=== PATIENT | female | born 1985 | race Caucasian/White ===

== ENCOUNTER → 2018-02-16 10:33 | Outpatient (CLI) | payer OTHER, SELFPAY ==
--- NOTE | 2018-02-16 | DI.US.S_ITS ---
ULTRASOUND OF RIGHT BREAST: 02/16/2018 CLINICAL: Palpable right breast lump. Comparison is made to exams dated: 02/16/2018 mammogram - [facility], 02/13/2017 ultrasound, and 05/30/2016 ultrasound - [facility]. Ultrasound of the right breast was performed on the area of interest. Medrano scale images of the real-time examination were reviewed. IMPRESSION: NEGATIVE There is no sonographic evidence of malignancy. There is no mammographic or sonographic abnormality seen in the right breast to correspond with the palpable abnormality, however, clinical followup is recommended. Return to annual mammogram screening schedule is recommended. This exam was interpreted at Station ID: [id number]. Electronically Signed By: Ana rasheed/jason:02/16/2018 14:11:40 copy to: TAMARA THAKUR letter sent: Clinical Evaluation Ultrasound BI-RADS: 1 Negative
--- NOTE | 2018-02-16 | DI.MG.S_ITS ---
BILATERAL DIGITAL DIAGNOSTIC MAMMOGRAM 3D/2D: 02/16/2018 CLINICAL: Right breast mass. Comparison is made to exams dated: 05/30/2016 ultrasound and 02/13/2017 ultrasound - [facility]. The tissue of both breasts is extremely dense, which lowers the sensitivity of mammography. No significant masses, calcifications, or other findings are seen in either breast. IMPRESSION: INCOMPLETE: NEEDS ADDITIONAL IMAGING EVALUATION There is no mammographic abnormality seen in the right breast to correspond with the palpable abnormality, however, ultrasound is recommended. This exam was interpreted at Station ID: [id number]. NOTE: For mammograms, a report in lay terms will be sent to the patient. Approximately 15% of breast malignancies will not be visualized mammographically. In the management of a palpable breast mass, a negative mammogram must not discourage biopsy of a clinically suspicious lesion. Electronically Signed By: Ana rasheed/jason:02/16/2018 11:30:24 copy to: TAMARA THAKUR letter sent: Additional Imaging Needed ACR BI-RADS Category 0: Incomplete 3340F
== END ==
PROVIDERS: PCP Naturopath; Visit Provider Nurse Practitioner Obstetrics & Gynecology
DX: R92.1 Mammographic calcification found on diagnostic imaging of breast (principal); N63.10 Unspecified lump in the right breast, unspecified quadrant
CPT/HCPCS: 76642; 77066; G0279

== ENCOUNTER → 2019-07-15 12:35 | Outpatient (CLI) | payer OTHER, SELFPAY ==
--- NOTE | 2019-07-15 | DI.US.S_ITS ---
ULTRASOUND OF LEFT BREAST: 07/15/2019 CLINICAL: Palpable left breast lump. Comparison is made to exams dated: 07/15/2019 mammogram, 02/16/2018 mammogram - [facility], 02/13/2017 ultrasound, and 05/30/2016 ultrasound - [facility]. Color flow and real-time ultrasound of the left breast were performed on the areas of interest. Medrano scale images of the real-time examination were reviewed. There is a 1.1 cm x 5 cm x 1.1 cm oval mass in the left breast at 1 o'clock middle depth. This oval mass is hypoechoic. This correlates as palpated. There also is a 1.6 cm x 1.8 cm x 0.6 cm oval mass in the left breast at 3 o'clock middle depth. This oval mass is hypoechoic. This correlates as palpated. Additionally, there is a 0.7 cm x 0.4 cm x 0.9 cm irregular mass in the left breast at 4 o'clock anterior depth. This irregular mass is hypoechoic. The left axilla was interogated and normal appearing lymph nodes are visualized. IMPRESSION: INCOMPLETE: NEEDS ADDITIONAL IMAGING EVALUATION The 1.1 cm x 5 cm x 1.1 cm oval mass in the left breast at 1 o'clock middle depth likely represents a fibroadenoma and is indeterminate. The 1.6 cm x 1.8 cm x 0.6 cm oval mass in the left breast at 3 o'clock middle depth likely represents a fibroadenoma and is indeterminate. The 0.7 cm x 0.4 cm x 0.9 cm irregular mass in the left breast at 4 o'clock anterior depth likely represents a fibroadenoma and is indeterminate. No left axillary adenopathy. Given the multiple palpable breast masses that have the sonographic appearance of fibroadenomas, an MRI is recommended to further characterize findings. This exam was interpreted at Station ID: [id number]. Electronically Signed By: Ana rasheed/:07/17/2019 09:23:10 Entry: debra - 07/17/2019 09:23:10 copy to: TAMARA THAKUR letter sent: Need MRI Ultrasound BI-RADS: 0 Indeterminate
--- NOTE | 2019-07-15 | DI.MG.S_ITS ---
BILATERAL DIGITAL DIAGNOSTIC MAMMOGRAM 3D/2D: 07/15/2019 CLINICAL: Bilateral breast lumps. Comparison is made to exams dated: 02/16/2018 mammogram - [facility], 02/13/2017 ultrasound, 05/30/2016 ultrasound [facility], and 02/16/2018 [facility] [place] - [facility]. The tissue of both breasts is extremely dense, which lowers the sensitivity of mammography. No significant masses, calcifications, or other findings are seen in either breast. IMPRESSION: INCOMPLETE: NEEDS ADDITIONAL IMAGING EVALUATION There are no mammographic abnormalities seen in either breast to correspond with the palpable nodularities, however, targeted ultrasound of the bilateral breasts is recommended and will be performed immediately following this exam. This exam was interpreted at Station ID: [id number]. NOTE: For mammograms, a report in lay terms will be sent to the patient. Approximately 15% of breast malignancies will not be visualized mammographically. In the management of a palpable breast mass, a negative mammogram must not discourage biopsy of a clinically suspicious lesion. Electronically Signed By: Ana Purvis M.D. lk/:07/15/2019 13:24:51 copy to: TAMARA THAKUR [facility] BI-RADS Category 0: Incomplete 3340F
--- NOTE | 2019-07-15 | DI.US.S_ITS ---
ULTRASOUND OF RIGHT BREAST: 07/15/2019 CLINICAL: Palpable right breast lump. Comparison is made to exams dated: 07/15/2019 mammogram, 02/16/2018 ultrasound, 02/16/2018 mammogram - [facility], 02/13/2017 ultrasound, and 05/30/2016 ultrasound - [facility]. Color flow and real-time ultrasound of the right breast were performed on the areas of interest. Medrano scale images of the real-time examination were reviewed. There is a 1.6 cm x 0.6 cm x 1.6 cm oval mass in the right breast at 9 o'clock middle depth. This oval mass is hypoechoic. This correlates as palpated. The right axilla was interogated and normal appearing lymph nodes are visualized. IMPRESSION: INCOMPLETE: NEEDS ADDITIONAL IMAGING EVALUATION There is no mammographic or sonographic abnormality seen in the right breast to correspond with the palpable abnormality at 12 o'clock, however, clinical followup is recommended. The 1.6 cm x 0.6 cm x 1.6 cm oval mass in the right breast likely represents a fibroadenoma and is indeterminate. No right axillary adenopathy. Given the presence of bilateral palpable masses that have the sonographic appearance of fibroadenomas and the extremely dense breast tissue, breast MRI is recommeded to further characterize the bilateral palpable masses. This exam was interpreted at Station ID: [id number]. Electronically Signed By: Ana rasheed/:07/17/2019 09:23:35 Entry: debra - 07/17/2019 09:23:35 copy to: TAMARA THAKUR letter sent: Need MRI Ultrasound BI-RADS: 0 Indeterminate
== END ==
PROVIDERS: PCP Naturopath; Visit Provider Naturopath
DX: R92.8 Other abnormal and inconclusive findings on diagnostic imaging of breast (principal); N63.15 Unspecified lump in the right breast, overlapping quadrants; N63.21 Unspecified lump in the left breast, upper outer quadrant; N63.25 Unspecified lump in the left breast, overlapping quadrants; N63.23 Unspecified lump in the left breast, lower outer quadrant
CPT/HCPCS: 76642; 77066; G0279

== ENCOUNTER → 2019-07-16 07:31 | Outpatient (CLI) | payer OTHER, SELFPAY ==
[2019-07-16 08:54] LABS: Add Manual Diff / Slide Review NO; Basophils Absolute Auto 0 /uL (0-100); Basophils Percent Auto 0.4 % (0-2); Eosinophils Absolute Auto 100 /uL (0-450); Eosinophils Percent Auto 2.7 % (2-4); Hematocrit 38.3 % (36-46); Hemoglobin 13.2 g/dL (12.0-16.0); Lymphocytes Absolute Auto 1500 /uL (1100-4500); Lymphocytes Percent Auto 30.5 % (25-40); Mean Corpuscular HGB Conc 34.5 % (30-36); Mean Corpuscular Hemoglobin 29.6 PG (26-34); Mean Corpuscular Volume 85.9 fL (80-100); Monocytes Absolute Auto 400 /uL (0-900); Monocytes Percent Auto 7.4 % (3-14); Neutrophils Absolute Auto 2800 /uL (1500-7000); Platelet Count 163 X10^3/uL (150-400); Red Blood Cell Count 4.46 X10^6/uL (4.0-5.2); Red Cell Distribution Width 13.3 % (11.6-14.8); White Blood Cell Count 4.8 X10^3/uL (4.5-11.0)
[2019-07-16 09:05] LABS: Alanine Aminotransferase 16 IU/L (<35); Albumin 4.6 g/dL (3.5-5.0); Albumin Globulin Ratio 1.8 (1.0-2.8); Alkaline Phosphatase 49 U/L (38-126); Aspartate Aminotransferase 26 IU/L (14-36); BUN Creatinine Ratio 31.4 (6-22); Bilirubin Total 0.6 mg/dL (0.2-1.3); Blood Urea Nitrogen 22 mg/dL (7-17); Calcium 9.2 mg/dL (8.4-10.2); Carbon Dioxide 29 mmol/L (22-32); Chloride 102 mmol/L (98-107); Cholesterol 122 mg/dL (140-199); Estimated Glomerular Filt Rate > 60.0 mL/min (>60); Globulin 2.5 g/dL (1.7-4.1); Glucose 82 mg/dL (70-100); HDL Cholesterol 61 mg/dL (40-60); HEMOLYSIS < 15 (0-50); LDL Cholesterol Calculated 43 mg/dL (<100); Potassium 3.7 mmol/L (3.4-5.1); Sodium 140 mmol/L (137-145); Total Protein 7.1 g/dL (6.3-8.2); Triglycerides 89 mg/dL (35-150)
[2019-07-16 09:38] LABS: Ferritin 8.1 ng/mL (6.27-137)
[2019-07-16 10:05] LABS: Free T3, Triiodothyronine Free 4.69 pg/mL (2.77-5.27); Free T4, Direct Thyroxine 0.94 ng/dL (0.78-2.19)
[2019-07-16 10:19] LABS: Thyroid Stimulating Hormone 2.08 uIU/mL (0.47-4.68)
[2019-07-18 17:01] LABS: Thyroid Peroxidase Antibodies < 1 IU/mL (< 9)
== END ==
PROVIDERS: PCP Naturopath; Visit Provider Naturopath
DX: Z00.00 Encounter for general adult medical examination without abnormal findings (principal); R53.83 Other fatigue
CPT/HCPCS: 36415; 80053; 80061; 82728; 84439; 84443; 84481; 85025; 86376

== ENCOUNTER 2019-07-24 14:28 | Emergency (ER) | payer OTHER, SELFPAY ==
[2019-07-24 14:33] VITALS: BP 94/69; PULSE 66; RESP 16; TEMP 37; O2SAT 98; BMI 16.1
--- NOTE | 2019-07-24 14:47 | PC.NURSE ---
pt states that she feels pressure at about the xiphoid process level, started during a meal, feels like something is stuck there, worsens when she eats something, no drooling, no vomiting, no difficulty breathing, lungs clear, no acute distress
--- NOTE | 2019-07-24 15:05 | ED.ABDPAIN ---
HPI - Abdominal Pain <JANETTE Bhardwaj - Last Filed: 07/24/19 17:35> General Chief Complaint: Abdominal Pain Stated Complaint: pain in the esophagus Time Seen by Provider: 07/24/19 14:44 Source: patient Mode of arrival: Ambulatory Limitations: no limitations History of Present Illness HPI narrative: 33-year-old female presents to the emergency department complaining of epigastric pain that started last night. She states it is a 4/10 burning and dull aching pain that only occurs when she chews and swallows food. She states a gradually came on as she noticed it while eating dinner late. Patient took Tums but still complains of irritation when swallowing. She has no pain at rest or during exercise. Patient denies any difficulty swelling. She is able to eat all food and liquids without difficulty, denies traveling. Patient denies sore throat, fevers, shortness of breath, dizziness, abdominal pain, diarrhea, vomiting, or other concerns. She denies any melena or history of gastric ulcers. She denies any abdominal surgeries. Related Data Previous Rx's Medication Instructions Recorded omeprazole 20 mg PO DAILY 14 Days #14 cap 07/24/19 Allergies Allergy/AdvReac Type Severity Reaction Status Date / Time No Known Drug Allergies Allergy Verified 07/24/19 14:33 Review of Systems <JANETTE Bhardwaj - Last Filed: 07/24/19 17:35> Review of Systems Narrative: REVIEW OF SYSTEMS: GENERAL: Denies fever, chills, malaise, or wt. loss. HENT: No head trauma, sore throat, or dysphagia. EYES: No loss of vision, double vision, eye pain, or irritation. CARDIOVASCULAR: No palpitations, or orthopnea. RESPIRATORY: No shortness of breath or cough. GASTROINTESTINAL: Complains of occasional epigastric pain with swelling, see HPI. GENITOURINARY: No flank pain, urinary incontinence, hesitancy, frequency, or dysuria. MUSCULOSKELETAL: No pain, weakness, or trauma. INTEGUMENTARY: No rash, lesions, or pruritus. NEURO: No numbness, tingling, memory loss, confusion, or headaches. PSYCH: No behavior or mood changes. Patient History <JANETTE Bhardwaj - Last Filed: 07/24/19 17:35> Medical History No significant medical problems (Acute) Social History Smoking Status: Never smoker Smoking Status: Never smoker alcohol intake frequency: holidays/special occasions only Substance Use Type: does not use Exam <JANETTE Bhardwaj - Last Filed: 07/24/19 17:35> Initial Vital Signs Initial Vital Signs: Vital Signs Temperature 98.6 F 07/24/19 14:33 Pulse Rate 66 07/24/19 14:33 Respiratory Rate 16 07/24/19 14:33 Blood Pressure 94/69 07/24/19 14:33 Pulse Oximetry 98 07/24/19 14:33 PHYSICAL EXAMINATION: GENERAL: Well groomed, alert, and cooperative. Skinny appearing. Answers questions promptly and appropriately. Vital signs noted. HENT: Normocephalic, atraumatic. Hearing intact. Oral mucosa is pink and moist. EYES: Conjunctiva pink, sclera white, no periorbital swelling. CARDIOVASCULAR: S1 and S2 sounds normal. Regular rate and rhythm, no murmurs, clicks, or bruits. No pedal edema. RESPIRATORY: Normal respiratory rate, trachea midline, airway patent. No stridor, nasal flaring or accessory muscle use. Lungs are clear in all blanco without wheeze, rhonchi, or crackles. GASTROINTESTINAL: Bowel sounds normoactive. Abdomen is soft and non-tender. No organomegaly, no palpable masses. MUSCULOSKELETAL: Normal gait and coordination. Equal tone and mass bilaterally. EXTREMITIES: CMS intact, no pedal edema. SKIN: Warm, dry, soft, appropriate color for ethnicity. No lesions, rashes, or wounds to visualized areas. NEURO: Alert and Oriented X 3. Good coordination. No ataxia, or sensory deficits, or cognitive issues. PSYCH: Appropriate affect and mood. <Lindy Ralph MD - Last Filed: 07/25/19 06:54> Initial Vital Signs Initial Vital Signs: Vital Signs Temperature 98.6 F 07/24/19 14:33 Pulse Rate 66 07/24/19 14:33 Respiratory Rate 16 07/24/19 14:33 Blood Pressure 94/69 07/24/19 14:33 Pulse Oximetry 98 07/24/19 14:33 Course <JANETTE Bhardwaj - Last Filed: 07/24/19 17:35> Course Course Narrative: Patient was given a GI cocktail to see if this will help relieve symptoms. Patient reported decreased pain with swelling liquids after administration of GI cocktail. However, she still feels esophageal irritation when eating crackers. Orders Ordered: Discontinued Medications Al Hydrox/Mg Hydrox/Simethicone 20 ml/ Lidocaine HCl 15 ml 0 ml PO NOW ONE Stop: 07/24/19 15:06 Last Admin: 07/24/19 15:10 Dose: 20 ml Documented by: [facility] Consultations Consultation #1: Patient staffed with Dr. Ralph. Vital Signs Vital signs: Vital Signs - 8 hr 07/24/19 14:33 Temperature 98.6 F Pulse Rate 66 Respiratory Rate 16 Blood Pressure 94/69 Pulse Oximetry 98 <Lindy Ralph MD - Last Filed: 07/25/19 06:54> Orders Ordered: Discontinued Medications Al Hydrox/Mg Hydrox/Simethicone 20 ml/ Lidocaine HCl 15 ml 0 ml PO NOW ONE Stop: 07/24/19 15:06 Last Admin: 07/24/19 15:10 Dose: 20 ml Documented by: [facility] Vital Signs Vital signs: Vital Signs - 8 hr 07/24/19 14:33 Temperature 98.6 F Pulse Rate 66 Respiratory Rate 16 Blood Pressure 94/[address] [facility] - Abdominal Pain <JANETTE Bhardwaj - Last Filed: 07/24/19 17:35> Medical Records Attestation: I reviewed the patient's medical records. Lab Data Attestation: I reviewed the patient's lab results. ECG Data Interpretation: EKG read by Dr. Ralph. normal sinus rhythm, rate 61, WI interval 147, QTC 403. no ST elevation or ST depression. No T-wave abnormal T and no ectopy. [facility] Narrative Medical decision making narrative: This is a healthy appearing 33-year-old female presenting for what appears to be esophageal irritation that occurs only when swallowing food and water. This was slightly improved with a GI cocktail but she still felt some irritation with swallowing foods like crackers. I suspect most likely esophagititis from food or acid reflux or gastritis. Less likely foreign body stuck in throat as pain only occurs while swallowing and she does not have a sensation of food continually being stuck, patient able to maintain secretions and swallow all types of foods and liquids, additionally sensation slightly improved with GI cocktail. Less likely cardiac etiology as pain only occurs when patient is swallowing food, low risk factors, EKG within normal limits, and lack of other symptoms such as syncope or shortness of breath. Less likely hemorrhagic ulcer due to lack of reports of vomiting or black tarry/blood in stools. less likely acute abdominal etiology such as small-bowel obstruction, appendicitis, or gastroenteritis due to lack of other symptoms such as fever and lack of abdominal pain. patient remained hemodynamically stable throughout the emergency department stay and only complained of pain when she was chewing her crackers. Patient was given omeprazole to help with inflammatory process and instructed to follow up with her primary care provider in 1-2 weeks for further evaluation, if irritation encouraged I suggest and the scope may be beneficial. Patient agreed with plan of care verbalized understanding. Discharge Plan Departure Patient Disposition: Home Clinical Impression: Esophagitis Discharge Date/Time: 07/24/19 16:11 Instructions: DI for Esophagitis Activity Restrictions/Additional Instructions: Thank you for entrusting me with your care today. As discussed, your symptoms are most likely caused by irritation of your esophagus. This most likely caused by irritation from food. A given you prescription for omeprazole, take this for a week and she is foods that are softer to chew such as applesauce, avocados, and bread versus toast. If your symptoms persist after week continue with omeprazole for 2 weeks. Follow up with your primary care provider in 1-2 weeks for further evaluation. Return emergency department for new or worsening symptoms such as vomiting blood, severe abdominal pain, high fevers, blood in her stool, or other concerns. Prescriptions: New omeprazole 20 mg capsule,delayed release(DR/EC) 20 mg PO DAILY 14 Days Qty: 14 RF: 0 Referrals: Shannon Garza ND [Primary Care Provider] -
[2019-07-24] MEDS: MAG HYDROX/ALUMINUM/SIMETH SUS 20 ML, LIDOCAINE VISCOUS 2% 15 ML PO (15:10)
== END 2019-07-24 16:11 | disposition home or self-care (01) ==
PROVIDERS: Emergency Provider Nurse Practitioner; PCP Naturopath
DX: K20.9 Esophagitis, unspecified (principal); R10.13 Epigastric pain
CPT/HCPCS: 93005; 99283

== ENCOUNTER → 2019-08-07 11:25 | Outpatient (CLI) | payer OTHER, SELFPAY ==
--- NOTE | 2019-08-07 | DI.MRI.S_ITS ---
BREAST MRI OF BOTH BREASTS: 08/07/2019 CLINICAL: Inconclusive mammogram. TECHNIQUE: The patient was placed prone in a dedicated breast imaging coil. Precontrast axial STIR and 3D FLASH without fat saturation sequences were obtained. Both before and after bolus injection of contrast, sequential 1-minute axial 3D FLASH with fat saturation sequences for 3 time points, with subtraction images and maximum intensity projections (MIP's) generated. Delayed sagittal FLASH images with fat saturation were also obtained. Computer-aided detection, including computer algorithm analysis of MRI image data for lesion detection and characterization, pharmacokinetic analysis, with further physician review for interpretation, was not available. COMPARISON: Comparison is made to exams dated: 07/15/2019 mammogram, 02/16/2018 mammogram, 07/15/2019 ultrasound, and 07/15/2019 [facility]. FINDINGS: Image quality: Excellent. There is minor right breast background parenchymal and moderate left breast background parenchymal enhancement. Right breast: A smoothly marginated, heterogeneous mass is a posterior depth along the pectoralis muscle at the 1:00 position 6 cm from the nipple measuring 2.4 x 1.9 x 1.0 cm. Internal signal is heterogeneous, mild T2 hyperintensity with a central hypointense focus, and with a ringlike irregular portion demonstrating arterial enhancement. Overall the mass demonstrates mild progressive, benign enhancement. This likely corresponds to the 12 clock palpable region. At the 8:00 position 2 cm from the nipple, there is a second heterogeneous, smoothly marginated, lobulated mass measuring 1.3 x 0.9 x 1.2 cm the which also demonstrates lobulated T2 hyperintensity, less arterial enhancement, and progressive benign enhancement. This likely corresponds to the palpable 9:00 finding. Left breast: There is a T2 hyperintense well-circumscribed ovoid lesion in the 1:00 position demonstrating arterial enhancement with persistent delayed enhancement measuring 1.0 x 0.6 x 1.0 cm by centimeters from the nipple corresponding to the ultrasound finding. At the 3 to 4:00 position a straight back from the nipple at a posterior depth, and 1.1 cm irregular, lobulated masslike lesion demonstrates. Elsewhere in the lower inner quadrant there are moderate nodular, clumped areas of background parenchymal enhancement. No other discrete masses are identified. Miscellaneous: No suspicious internal mammary or axillary lymph nodes are identified. The visible portions of the liver, heart, lungs, and chest wall are normal. IMPRESSION: INCOMPLETE: NEEDS ADDITIONAL IMAGING EVALUATION IMPRESSION: 1. There are 2 right breast masses corresponding to the indicated areas of palpable abnormality, both with mildly T2 hyperintense signal and progressive arterial enhancement. These are likely fibroadenomas. A second look ultrasound is recommended for the 1:00 abnormality (likely corresponding to the 12:00 palpable region). 2. There is a discrete 1.0 cm left breast mass at 1:00 position with MR features consistent with fibroadenoma, and consistent with ultrasound findings. 3. Somewhat amorphous mass in the left breast 3 to 4:00 position measuring 1.1 cm without suspicious enhancement. This likely corresponds to the 3:00 ultrasound finding. BIRADS -0, further imaging is needed. Second look ultrasound of the right breast is recommended. COMMENT: The imaging literature indicates that a negative contrast breast MRI examination has a high sensitivity and a moderate specificity for detecting and excluding invasive carcinomas to a detection threshold of 3-5 mm; nonetheless, appropriate clinical and mammographic follow-up are recommended. MRI is not sensitive for detecting DCIS (ductal carcinoma in situ) and may not detect large invasive neoplasms that show only minimal enhancement such as mucinous carcinoma. If there are suspicious calcifications or clinically worrisome palpable masses, then biopsy should still be considered. Invasive neoplasms can be hidden by co-existent and benign enhancement caused by mastitis, hormone therapy effects, radiation therapy, , and recent biopsy or surgery. False positive examinations can occur in a number of circumstances, including breasts that have recently been subject to invasive procedures and those that contain atypical ductal hyperplasia, hormonally stimulated glandular tissue, fat necrosis, or radial scars. This exam was interpreted at Station ID: [id number]. Electronically Signed By: Jessica monroy/:08/09/2019 09:53:17 copy to: TAMARA THAKUR letter sent: Additional Imaging Needed ACR BI-RADS Category 0: Incomplete 3340F
== END ==
PROVIDERS: PCP Naturopath; Visit Provider Naturopath
DX: R92.8 Other abnormal and inconclusive findings on diagnostic imaging of breast (principal); N63.12 Unspecified lump in the right breast, upper inner quadrant; N63.13 Unspecified lump in the right breast, lower outer quadrant; N63.23 Unspecified lump in the left breast, lower outer quadrant
CPT/HCPCS: 77049; A9579

== ENCOUNTER → 2019-08-28 09:38 | Outpatient (CLI) | payer OTHER, SELFPAY ==
--- NOTE | 2019-08-28 | DI.US.S_ITS ---
[place] ULTRASOUND OF RIGHT BREAST: 08/28/2019 CLINICAL: Palpable right breast lump. Additional evaluation requested from prior study. Comparison is made to exams dated: 08/07/2019 breast MRI, 07/15/2019 ultrasound, 07/15/2019 mammogram, 02/16/2018 ultrasound, 02/16/2018 mammogram - [facility], and 02/13/2017 ultrasound - [facility]. Color flow ultrasound of the right breast was performed. Medrano scale images of the real-time examination were reviewed. There is a 1.5 cm x 0.6 cm x 1.6 cm oval mass in the right breast at 9 o'clock middle depth 3 cm from the nipple. This oval mass is hypoechoic. This abnormality is not significantly changed and correlates as palpated and with recent breast MRI findings. There also is a 2.8 cm x 2.4 cm x 0.4 cm wider than tall oval mass in the right breast at 1 o'clock posterior depth 6 cm from the nipple. This oval mass is hypoechoic and is similar to MRI finding described at the 1 o'clock position, close to the pectoralis muscle. Color flow imaging demonstrates that there is no vascularity present. Additional area of a likely prominent fibroglandular tissue is noted at the 12:00 position, 4cm from the nipple which correlated previously with one of the palpable areas of patient concern. There is no vascularity. It appears less prominent than before. IMPRESSION: PROBABLY BENIGN The 1.5 cm x 0.6 cm x 1.6 cm oval mass in the right breast at 9 o'clock middle depth likely represents a fibroadenoma and is probably benign. This correlates with MRI finding described on study dated 08/07/2019. The 2.8 cm x 2.4 cm x 0.4 cm wider than tall oval mass in the right breast at 1 o'clock posterior depth is probably benign. This likely represents a fibroadenoma and also likely correlates with MRI findings. Previously palpable area of concern at the 12:00 axis, 4cm from the nipple likely represents a ridge of prominent breast tissue. It appears less prominent and smaller in size on today's evaluation. There is no mammographic correlate for this finding and no enhancing abnormalities on recent MRI. A follow-up breast MRI in 6 months is recommended to demonstrate stability. The patient was also instructed to return sooner if development of any clinically suspicious findings in the interim, especially any changes related to the palpable areas of concern in either breast. This exam was interpreted at Station ID: [id number]. Electronically Signed By: Stone Casey M.D. aty/:08/30/2019 07:10:17 copy to: TAMARA THAKUR letter sent: Followup Recommended Ultrasound BI-RADS: 3 Probably benign
== END ==
PROVIDERS: PCP Naturopath; Referring Provider Naturopath; Visit Provider Naturopath
DX: R92.8 Other abnormal and inconclusive findings on diagnostic imaging of breast (principal); N63.15 Unspecified lump in the right breast, overlapping quadrants
CPT/HCPCS: 76642

== ENCOUNTER → 2020-09-29 08:57 | Outpatient (CLI) | payer OTHER, SELFPAY ==
[2020-09-29 09:33] LABS: Add Manual Diff / Slide Review NO; Basophils Absolute Auto 0 /uL (0-100); Basophils Percent Auto 0.5 % (0-2); Eosinophils Absolute Auto 200 /uL (0-450); Hematocrit 38.4 % (36-46); Hemoglobin 13.2 g/dL (12.0-16.0); Lymphocytes Absolute Auto 1300 /uL (1100-4500); Lymphocytes Percent Auto 33.7 % (25-40); Mean Corpuscular HGB Conc 34.5 % (30-36); Mean Corpuscular Hemoglobin 29.5 PG (26-34); Mean Corpuscular Volume 85.6 fL (80-100); Monocytes Absolute Auto 300 /uL (0-900); Monocytes Percent Auto 7.4 % (3-14); Neutrophils Absolute Auto 2200 /uL (1500-7000); Neutrophils Percent Auto 54.4 % (50-75); Platelet Count 149 X10^3/uL (150-400); Red Blood Cell Count 4.48 X10^6/uL (4.0-5.2); Red Cell Distribution Width 13.4 % (11.6-14.8)
[2020-09-29 10:18] LABS: Alanine Aminotransferase 19 IU/L (<35); Albumin 4.4 g/dL (3.5-5.0); Albumin Globulin Ratio 1.7 (1.0-2.8); Alkaline Phosphatase 52 U/L (38-126); Aspartate Aminotransferase 27 IU/L (14-36); Bilirubin Total 0.6 mg/dL (0.2-1.3); Blood Urea Nitrogen 17 mg/dL (7-17); Calcium 9.5 mg/dL (8.4-10.2); Carbon Dioxide 28 mmol/L (22-32); Chloride 100 mmol/L (98-107); Cholesterol 115 mg/dL (140-199); Estimated Glomerular Filt Rate > 60.0 mL/min (>60); Globulin 2.6 g/dL (1.7-4.1); Glucose 86 mg/dL (70-100); HDL Cholesterol 69 mg/dL (40-60); HEMOLYSIS < 15 (0-50); LDL Cholesterol Calculated 38 mg/dL (<100); Sodium 135 mmol/L (137-145); Triglycerides 42 mg/dL (35-150)
== END ==
PROVIDERS: PCP Naturopath; Referring Provider Naturopath; Visit Provider Naturopath
DX: Z00.00 Encounter for general adult medical examination without abnormal findings (principal)
CPT/HCPCS: 36415; 80053; 80061; 85025

== ENCOUNTER → 2021-02-16 10:21 | Outpatient (CLI) | payer OTHER, SELFPAY ==
--- NOTE | 2021-02-16 | DI.RAD.S_ITS ---
PROCEDURE: XR LUMBAR SPINE 2-3V INDICATIONS: Low back pain TECHNIQUE: 2 views of the lumbar spine were acquired. COMPARISON: None. FINDINGS: Bones: 5 [id number] vertebrae are present. There is normal bony alignment. No acute vertebral body compression fractures. No suspicious bony lesions. Degenerative endplate changes of the lumbar spine noted at L1-2 and L2-3. There also degenerative endplate changes at L5-S1. Minimal lower lumbar facet arthropathy. Soft tissues: Overlying bowel gas pattern is normal. No suspicious soft tissue calcifications. IUD projects in the lower pelvis. IMPRESSION: Lumbar spine without acute radiographic abnormalities. Multilevel lumbar spondylosis of the upper lumbar spine and lumbosacral junction. Dictated by: Stone Casey M.D. on 02/16/2021 at 11:39 Approved by: Stone Casey M.D. on 02/16/2021 at 11:40
--- NOTE | 2021-02-16 | DI.RAD.S_ITS ---
PROCEDURE: XR CERVICAL SPINE 2V OR 3V INDICATIONS: Low back pain TECHNIQUE: 3 view(s) of the cervical spine were acquired. COMPARISON: None. FINDINGS: Bones: No fractures or dislocations to the T2 level. The lateral masses of C1 appear intact on the odontoid view. No suspicious bony lesions. Soft tissues: No prevertebral soft tissue swelling. IMPRESSION: Normal cervical spine radiographs Approved by: René Morin M.D. on 02/16/2021 at 12:28
--- NOTE | 2021-02-16 | DI.RAD.S_ITS ---
PROCEDURE: XR THORACIC SPINE 2V INDICATIONS: Low back pain TECHNIQUE: Two views of the thoracic spine were acquired. COMPARISON: None. FINDINGS: Bones: No fractures or dislocations. No suspicious bony lesions. 12 pairs of ribs are noted, and appear intact where visualized. Soft tissues: No paravertebral stripe thickening. IMPRESSION: No visible thoracic fractures or significant focal degeneration. Dictated by: Jessica Thomas M.D. on 02/16/2021 at 12:58 Approved by: Jessica Thomas M.D. on 02/16/2021 at 13:01
== END ==
PROVIDERS: Referring Provider Chiropractor; Visit Provider Chiropractor
DX: M99.01 Segmental and somatic dysfunction of cervical region (principal); M99.02 Segmental and somatic dysfunction of thoracic region; M99.03 Segmental and somatic dysfunction of lumbar region; M99.04 Segmental and somatic dysfunction of sacral region; M99.05 Segmental and somatic dysfunction of pelvic region; M54.2 Cervicalgia; M54.6 Pain in thoracic spine; M54.5 Low back pain; M47.816 Spondylosis without myelopathy or radiculopathy, lumbar region; M47.817 Spondylosis without myelopathy or radiculopathy, lumbosacral region
CPT/HCPCS: 72040; 72070; 72100

== ENCOUNTER → 2021-10-18 08:07 | Outpatient (CLI) | payer OTHER, SELFPAY ==
[2021-10-18 10:57] LABS: Add Manual Diff / Slide Review NO; Basophils Absolute Auto 0 /uL (0-100); Basophils Percent Auto 0.4 % (0-2); Eosinophils Absolute Auto 200 /uL (0-450); Eosinophils Percent Auto 3.5 % (2-4); Hematocrit 39.5 % (36-46); Hemoglobin 13.5 g/dL (12.0-16.0); Lymphocytes Absolute Auto 1400 /uL (1100-4500); Lymphocytes Percent Auto 28.9 % (25-40); Mean Corpuscular HGB Conc 34.2 % (30-36); Mean Corpuscular Hemoglobin 29.3 PG (26-34); Mean Corpuscular Volume 85.7 fL (80-100); Monocytes Absolute Auto 300 /uL (0-900); Monocytes Percent Auto 7.1 % (3-14); Neutrophils Absolute Auto 2900 /uL (1500-7000); Neutrophils Percent Auto 60.1 % (50-75); Platelet Count 151 X10^3/uL (150-400); Red Blood Cell Count 4.61 X10^6/uL (4.0-5.2); Red Cell Distribution Width 13.5 % (11.6-14.8); White Blood Cell Count 4.8 X10^3/uL (4.5-11.0)
[2021-10-18 11:27] LABS: Alanine Aminotransferase 19 IU/L (<35); Albumin 4.7 g/dL (3.5-5.0); Albumin Globulin Ratio 1.6 (1.0-2.8); Alkaline Phosphatase 51 U/L (38-126); Aspartate Aminotransferase 26 IU/L (14-36); BUN Creatinine Ratio 20.3 (6-22); Bilirubin Total 0.7 mg/dL (0.2-1.3); Blood Urea Nitrogen 15 mg/dL (7-17); Carbon Dioxide 29 mmol/L (22-32); Chloride 104 mmol/L (98-107); Cholesterol 132 mg/dL (140-199); Estimated Glomerular Filt Rate > 60.0 mL/min (>60); Globulin 2.9 g/dL (1.7-4.1); Glucose 96 mg/dL (70-100); HDL Cholesterol 74 mg/dL (40-60); HEMOLYSIS < 15 (0-50); LDL Cholesterol Calculated 47 mg/dL (<100); Potassium 3.8 mmol/L (3.4-5.1); Sodium 140 mmol/L (137-145); Total Protein 7.6 g/dL (6.3-8.2); Triglycerides 56 mg/dL (35-150)
== END ==
PROVIDERS: PCP Naturopath; Referring Provider Naturopath; Visit Provider Naturopath
DX: Z00.00 Encounter for general adult medical examination without abnormal findings (principal)
CPT/HCPCS: 36415; 80053; 80061; 85025

== ENCOUNTER → 2021-12-05 12:29 | Outpatient (CLI) | payer OTHER, SELFPAY | PROVIDERS: PCP Naturopath; Visit Provider Physician Assistant | DX: J02.9 Acute pharyngitis, unspecified (principal) | CPT/HCPCS: 87070 ==